=== PATIENT | female | born 1970 | race Caucasian/White ===

== ENCOUNTER 2019-01-25 17:35 | Emergency (ER) | payer OTHER ==
[2019-01-25 17:47] VITALS: TEMP 98.1
[2019-01-25 19:02] LABS: BASO # 0.1 K/uL (0.0-0.2); BASO % 0.9 % (0.0-2.0); EOS # 0.1 K/uL (0.0-0.7); EOS % 2.1 % (0.0-4.0); HEMOGLOBIN 12.9 g/dL (11.0-16.0); LYMPH # 1.7 K/uL (1.0-4.3); LYMPH % 28.1 % (20.0-40.0); MEAN CELL VOLUME 89.3 fL (81.0-99.0); MEAN CORPUSCULAR HEMOGLOBIN 29.6 pg (27.0-31.0); MEAN CORPUSCULAR HGB CONC 33.2 g/dL (33.0-37.0); MEAN PLATELET VOLUME 9.5 fL (7.2-11.7); MONO # 0.5 K/uL (0.0-0.8); MONO % 7.7 % (0.0-10.0); NEUT # 3.8 K/uL (1.8-7.0); NEUT % 61.2 % (50.0-75.0); RBC 4.36 Mil/uL (3.80-5.20); RED CELL DISTRIBUTION WIDTH 13.2 % (11.5-14.5); WHITE BLOOD COUNT 6.1 K/uL (4.8-10.8)
--- NOTE | 2019-01-25 19:05 | C.PDOC ---
History Of Present Illness 48 y/o female with no PMHx presents to the ED complaining of 3 days of fatigue, lightheadedness, nausea, and burning in feet. She denies any chest pain or SOB. Denies syncope. No associated vomiting, diarrhea, fevers, or chills. 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 Time Seen by Provider: 01/25/19 18:27 Chief Complaint (Nursing): Dizziness/Lightheaded History Per: Patient History/Exam Limitations: no limitations Onset/Duration Of Symptoms: Days (x 3) Current Symptoms Are (Timing): Still Present Past Medical History Reviewed: Historical Data, Nursing Documentation, Vital Signs Vital Signs: Last Vital Signs Temp 98.1 F 01/25/19 17:44 Pulse 73 01/25/19 17:44 Resp 18 01/25/19 17:44 BP 153/85 H 01/25/19 17:44 Pulse Ox 100 01/25/19 17:44 - Medical History PMH: Asthma Family History: States: Diabetes - Social History Hx Tobacco Use: No Hx Alcohol Use: No Hx Substance Use: No - Immunization History Hx Tetanus Toxoid Vaccination: No Hx Influenza Vaccination: No Hx Pneumococcal Vaccination: No Review Of Systems Except As Marked, All Systems Reviewed And Found Negative. Constitutional: Positive for: Weakness (Fatigue). Negative for: Fever, Chills Eyes: Negative for: Vision Change Cardiovascular: Positive for: Light Headedness. Negative for: Chest Pain Respiratory: Negative for: Shortness of Breath Gastrointestinal: Positive for: Nausea. Negative for: Vomiting, Abdominal Pain, Diarrhea Musculoskeletal: Positive for: Foot Pain ("burning" sensation to feet) Neurological: Negative for: Weakness, Numbness, Incoordination, Headache Physical Exam - Physical Exam Appears: Non-toxic, No Acute Distress Skin: Warm, Dry, No Rash Head: Atraumatic, Normacephalic Eye(s): bilateral: Normal Inspection, PERRL, EOMI Nose: Normal Oral Mucosa: Moist Neck: Normal ROM Chest: Symmetrical Cardiovascular: Rhythm Regular, No Murmur Respiratory: Normal Breath Sounds, No Rales, No Rhonchi, No Wheezing Gastrointestinal/Abdominal: Soft, No Tenderness, No Distention Extremity: Bilateral: Atraumatic, No Pedal Edema, Normal ROM Pulses: Left Radial: Normal, Right Radial: Normal Neurological/Psych: Oriented x3, Normal Speech, Normal Cognition, Normal Cranial Nerves, Other (No focal deficits) Gait: Steady ED Course And Treatment - Laboratory Results Result Diagrams: 01/25/19 18:59 01/25/19 18:59 ECG: Interpreted By Me, Viewed By Me ECG Rhythm: Sinus Rhythm ECG Interpretation: Normal Interpretation Of ECG: Normal intervals, normal axis, no ST/T wave abnormalities. Rate From EC O2 Sat by Pulse Oximetry: 100 (RA) Pulse Ox Interpretation: Normal - Radiology CXR: Interpreted by Me, Viewed By Me CXR Interpretation: Yes: No Acute Disease Medical Decision Making Medical Decision Making: Impression: Fatigue Plan: - Blood work - Urinalysis - EKG - CXR - 4 mg PO Zofran - Orthostatic vitals ordered Labs and imaging reviewed. 20:05 On re-evaluation patient is resting and reports she feels better, will d/c patient home. Advised to follow up with her doctor tomorrow. Disposition - Disposition Referrals: Geronimo Kaur MD [Medical Doctor] - Disposition: HOME/ ROUTINE Disposition Time: 20:06 Condition: STABLE Additional Instructions: follow up with your doctor tomorrow call to make an appointment take medication as prescribed return to ER if symptoms worsens or progress Instructions: Generalized Weakness (DC) Forms: [facility] ([place]), General Discharge Instructions - Clinical Impression Clinical Impression: Fatigue - Scribe Statement The provider has reviewed the documentation as recorded by the Hillary Castro Provider Attestation: All medical record entries made by the Juanisibjeff were at my direction and personally dictated by me. I have reviewed the chart and agree that the record accurately reflects my personal performance of the history, physical exam, medical decision making, and the department course for this patient. I have also personally directed, reviewed, and agree with the discharge instructions and disposition.
[2019-01-25 19:14] LABS: BLOOD UREA NITROGEN 16 mg/dL (7-17); CALCIUM 8.6 mg/dl (8.6-10.4); GFR NON-AFRICAN AMERICAN > 60
[2019-01-25 19:15] LABS: SQUAMOUS EPITHIAL 4 /hpf (0-5); URINE BACTERIA RARE (<OCC); URINE BILIRUBIN NEGATIVE (NEGATIVE); URINE BLOOD 1+ (NEGATIVE); URINE CLARITY Hazy (Clear); URINE COLOR Straw (YELLOW); URINE GLUCOSE (UA) NORMAL (Normal); URINE LEUKOCYTE ESTERASE NEG Leu/uL (Negative); URINE PROTEIN NEGATIVE (NEGATIVE); URINE UROBILINOGEN NORMAL mg/dL (0.2-1.0)
[2019-01-25 19:22] LABS: ALB/GLOB RATIO 1.4 (1.0-2.1); ALBUMIN 4.6 g/dL (3.5-5.0); ALT/SGPT 18 U/L (9-52); AST/SGOT 51 U/L (14-36)
[2019-01-25] MEDS ORDERED: Sodium Chloride 0.9% 1,000 ML IV ONE (19:24)
[2019-01-25] MEDS ORDERED: Sodium Chloride 0.9% 1,000 ML ONE (19:50)
[2019-01-25 20:58] VITALS: BP 119/80; PULSE 61; RESP 16; O2SAT 99
--- NOTE | 2019-01-26 09:12 | RAD ---
HISTORY: SOB COMPARISON: None available. TECHNIQUE: Chest PA and lateral FINDINGS: LUNGS: No focal consolidation. Please note that chest x-ray has limited sensitivity for the detection of pulmonary masses. PLEURA: No significant pleural effusion identified. No definite pneumothorax . CARDIOVASCULAR: The cardiomediastinal silhouette appears within normal limits of size. No atherosclerotic calcification present. OSSEOUS STRUCTURES: No acute osseous abnormality identified. VISUALIZED UPPER ABDOMEN: Unremarkable. OTHER FINDINGS: None. IMPRESSION: No focal consolidation.
--- NOTE | 2019-01-27 08:07 | CARD ---
APPROVED REPORT Date of service: 01/25/2019 EKG Measurement Heart [id number] <Conclusion> Normal sinus rhythm Possible Left atrial enlargement Borderline ECG
== END 2019-01-25 20:57 | disposition home or self-care (01) ==
LOC: C.ER 17:35
DX: R53.83 Other fatigue (principal)
CPT/HCPCS: 71046; 80053; 81001; 81025; 83735; 84443; 84484; 85025; 93005; 96361; 96374; 99285; J2405; J7030